=== PATIENT | female | born 1985 | race Caucasian/White ===

== ENCOUNTER 2018-03-09 08:46 | Outpatient (CLI) | payer OTHER ==
--- NOTE | 2018-03-10 11:27 | NM ---
RADIOIODINE THYROID SCAN: HISTORY: Abnormal results of thyroid function test. TECHNIQUE: A thyroid uptake and scan was performed following the oral administration of 260 microcuries Iodine-1 23. Planar anterior and both anterior oblique images were obtained. FINDINGS: Homogeneous tracer distribution is seen in both lobes of the thyroid gland. No focal hot or cold nodu les are seen. The 24 hour uptake measures 21% (normal 10-30%). IMPRESSION: Normal thyroid uptake and scan. POS: [facility]
== END 2018-03-09 08:47 | disposition home or self-care (01) ==
LOC: NM 08:46
PROVIDERS: ATTEND Internal Medicine Endocrinology, Diabetes & Metabolism
DX: R94.6 Abnormal results of thyroid function studies (principal)
CPT/HCPCS: 78014; A9509